=== PATIENT | male | born 1950 | race Asian ===

== ENCOUNTER 2021-06-05 06:53 | Day surgery (SDC) | payer OTHER, SELFPAY ==
[~2021-06-05] VITALS: Ht 165.1 cm; Wt 72.6 kg
[2021-06-05] MEDS ORDERED: fentaNYL citrate 0.05 MG/ML VIAL ONE (09:04)
[2021-06-05] MEDS ORDERED: diphenhydrAMINE 50 MG/ML VIAL ONE (09:04)
[2021-06-05] MEDS ORDERED: MIDAZOLAM 5 MG/5 ML VIAL ONE (09:05)
[2021-06-05] MEDS ORDERED: LIDOCAINE 2% 100 MG/5 ML UJET TP ONE (09:05)
[2021-06-05] MEDS ORDERED: MIDAZOLAM 2 MG/2 ML VIAL IVP ONE (13:35)
[2021-06-05] MEDS ORDERED: fentaNYL citrate 0.05 MG/ML VIAL IVP ONE ×2 (13:35→15:25)
== END 2021-06-05 10:34 | disposition home or self-care (01) ==
LOC: MDS 06:53 → MMU 06:54 → MDS 10:34
PROVIDERS: ATTEND Internal Medicine Gastroenterology
DX: Z12.11 Encounter for screening for malignant neoplasm of colon (principal); D12.2 Benign neoplasm of ascending colon; K62.5 Hemorrhage of anus and rectum; Z86.010 Personal history of colon polyps; I10 Essential (primary) hypertension; E11.9 Type 2 diabetes mellitus without complications; E78.5 Hyperlipidemia, unspecified; Z79.84 Long term (current) use of oral hypoglycemic drugs; Z79.82 Long term (current) use of aspirin; Z79.899 Other long term (current) drug therapy; Z20.822 Contact with and (suspected) exposure to COVID-19; Z89.612 Acquired absence of left leg above knee
CPT/HCPCS: 45385; 82948; 87426; 88305; J2250; J3010; J1200